=== PATIENT | male | born 1995 | race Caucasian/White ===

== ENCOUNTER 2020-06-16 10:47 | Emergency (ER) | payer OTHER ==
[~2020-06-16] VITALS: Ht 172.7 cm; Wt 77.1 kg
[2020-06-16] MEDS ORDERED: BUPROPION XL300 MG PO (11:04)
[2020-06-16] MEDS ORDERED: ZANAFLEX4 M1 PO (11:04)
[2020-06-16] MEDS ORDERED: AMOXIL 875 MG875 M1 PO (12:19)
[2020-06-16 12:33] VITALS: BP 124/74
== END 2020-06-16 12:34 | disposition home or self-care (01) ==
LOC: M.ERS 10:47
DX: J02.0 Streptococcal pharyngitis (principal); Z20.828 Contact with and (suspected) exposure to other viral communicable diseases

== ENCOUNTER 2020-08-23 23:04 | Emergency (ER) | payer OTHER ==
[~2020-08-23] VITALS: Ht 172.7 cm; Wt 74.8 kg
[~2020-08-23 23:04] MED LIST: AMOXIL 875 MG875 M1 PO; BUPROPION XL300 MG PO; ZANAFLEX4 M1 PO
[2020-08-23] MEDS ORDERED: FLEXERIL PO (23:22)
[2020-08-23] MEDS ORDERED: TRAMADOL 50 MG50 MG PO (23:22)
[2020-08-23 23:26] VITALS: BP 125/83
== END 2020-08-23 23:26 | disposition home or self-care (01) ==
LOC: M.ERS 23:04
DX: M54.5 Low back pain (principal)

== ENCOUNTER 2020-11-25 17:27 | Emergency (ER) | payer OTHER ==
[~2020-11-25] VITALS: Ht 172.7 cm; Wt 77.1 kg
[~2020-11-25 17:27] MED LIST changes: +FLEXERIL PO; +TRAMADOL 50 MG50 MG PO
[2020-11-25] MEDS ORDERED: DOXYCYCLINE 10100 MG PO (17:44)
[2020-11-25 17:53] VITALS: BP 129/65
== END 2020-11-25 17:53 | disposition home or self-care (01) ==
LOC: M.ERS 17:27
DX: L03.115 Cellulitis of right lower limb (principal); Z79.899 Other long term (current) drug therapy